=== PATIENT | female | born 1995 | race Two or more races ===

== ENCOUNTER 2019-06-10 05:00 | Inpatient (IN) | payer MEDICAID ==
[~2019-06-10] VITALS: Ht 154.9 cm; Wt 78.2 kg
[~2019-06-10 05:00] MED LIST: PREN1TAB10 PO
[2019-06-10] MEDS: D5%-LACTATED RINGERS 1,000 ML IV SCH ×2 (05:12→13:12)
[2019-06-10] MEDS ORDERED: OXYTOCIN 30U/ 0.9% NaCL 500ML 500 ML IV ONE (05:12)
[2019-06-10] MEDS ORDERED: OXYTOCIN 30U/ 0.9% NaCL 500ML 500 ML IV PRN (05:12)
[2019-06-10] MEDS ORDERED: NEWBORN KIT ONE (05:17)
[2019-06-10] MEDS ORDERED: LIDOCAINE 1%, 20ML ONE (05:18)
[2019-06-10] MEDS ORDERED: MISOPROSTOL 200 MCG TABLET ONE (05:19)
[2019-06-10] MEDS ORDERED: OXYTOCIN 30U/ 0.9% NaCL 500ML 500 ML ONE ×3 (05:19→22:13)
[2019-06-10 05:30] VITALS: BP 112/74
[2019-06-10] MEDS ORDERED: ALUMINUM/MAG/SIMETHICONE 30 ML UDC PO PRN (05:30)
[2019-06-10] MEDS: PENICILLIN GK 2,500,000 UNITS in DEXTROSE 5% 100 ML IVPB SCH ×4 (05:30→17:30)
[2019-06-10] MEDS ORDERED: METOCLOPRAMIDE 5 MG/ML, 2ML IVPush PRN (05:30)
[2019-06-10] MEDS ORDERED: TERBUTALINE 1 MG/ML, 1ML IVPush PRN (05:30)
[2019-06-10] MEDS ORDERED: CALCIUM CARBONATE 500 MG TAB.CHEW PO PRN (05:30)
[2019-06-10] MEDS ORDERED: ONDANSETRON 2MG/ML, 2ML IVPush PRN (05:30)
[2019-06-10] MEDS ORDERED: PENICILLIN GK 5,000,000 UNITS in DEXTROSE 5% 100 ML IVPB ONE (05:30)
[2019-06-10] MEDS ORDERED: TERBUTALINE 1 MG/ML, 1ML SQ PRN (05:30)
[2019-06-10] MEDS ORDERED: FENTANYL PF 100 MCG/2ML IVPush PRN (05:30)
[2019-06-10] MEDS ORDERED: FENTANYL PF 100 MCG/2ML IV PRN (05:30)
[2019-06-10] MEDS ORDERED: SODIUM CITRATE/CITRIC ACID 30 ML UDC PO PRN (05:30)
[2019-06-10 05:46] LABS: BASOPHILS # (AUTO) 0.02 x10^3/uL (0-0.1); BASOPHILS % (AUTO) 0 % (0-1); EOSINOPHILS # (AUTO) 0.07 x10^3/uL (0-0.4); EOSINOPHILS % (AUTO) 1 % (1-7); LYMPHOCYTES # (AUTO) 1.82 x10^3/uL (1-3.4); LYMPHOCYTES % (AUTO) 18 % (22-44); MD NO; MEAN CORPUSCULAR HEMOGLOBIN 28.5 pg (27.0-34.8); MEAN CORPUSCULAR HGB CONC 33.2 g/dL (32.4-35.8); MEAN CORPUSCULAR VOLUME 86.1 fL (80-100); MEAN PLATELET VOLUME 9.1 fL (7.4-10.4); MONOCYTES # (AUTO) 0.81 x10^3/uL (0.2-0.8); MONOCYTES % (AUTO) 8 % (2-9); NEUTROPHILS # (AUTO) 7.27 x10^3/uL (1.8-6.8); NEUTROPHILS % (AUTO) 73 % (42-75); PLATELET COUNT 216 x10^3/uL (130-400); RED BLOOD COUNT 4.22 x10^6/uL (3.82-5.3); RED CELL DISTRIBUTION WIDTH 13.9 % (9.6-15.2)
[2019-06-10] MEDS ORDERED: PLEASE ENTER HEIGHT AND WEIGHT MC SCH (06:30)
[2019-06-10] MEDS: LACTATED RINGERS 1,000 ML IV SCH ×3 (06:48→11:03)
[2019-06-10] MEDS ORDERED: FENTANYL/BUPIV./NS/PF 250 ML EPIDCONT SCH ×2 (07:33→11:20)
[2019-06-10] MEDS ORDERED: LACTATED RINGERS 1,000 ML IV SCH (11:20)
[2019-06-10] MEDS ORDERED: FENTANYL/BUPIV./NS/PF 250 ML EPIDCONT ONE ×2 (11:22→11:25)
[2019-06-10] MEDS ORDERED: BUPIVACAINE 0.25% ONE ×2 (11:23→11:25)
[2019-06-10] MEDS ORDERED: EPHEDRINE 50 MG/ML, 1ML IVPush PRN (11:30)
[2019-06-10] MEDS ORDERED: LACTATED RINGERS 1,000 ML IVBOLUS PRN (11:30)
[2019-06-10] MEDS ORDERED: NALOXONE 0.4 MG/ML, 1ML IVPush PRN (11:30)
[2019-06-10] MEDS ORDERED: ACETAMINOPHEN 325 MG TABLET ONE (16:48)
[2019-06-10] MEDS ORDERED: ACETAMINOPHEN 325 MG TABLET PO PRN (17:00)
[2019-06-10] MEDS ORDERED: GENTAMICIN PER PHARMACY MC SCH (17:00)
[2019-06-10] MEDS ORDERED: GENTAMICIN 300 MG in SODIUM CHLORIDE 0.9% 100 ML IV ONE (17:30)
[2019-06-10] MEDS ORDERED: PHARMACOKINETIC MONITORING MC PRN (17:30)
[2019-06-10] MEDS ORDERED: FENTANYL PF 100 MCG/2ML ONE (21:07)
[2019-06-10] MEDS ORDERED: SIMETHICONE 80 MG CHEW TAB PO PRN (22:00)
[2019-06-10] MEDS ORDERED: CEFAZOLIN 2,000 MG in SODIUM CHLORIDE 0.9% 50 ML IV ONE (22:00)
[2019-06-10] MEDS: OXYTOCIN 30U/ 0.9% NaCL 500ML 500 ML IV SCH (22:26)
[2019-06-10 23:35] VITALS: BP 99/67
[2019-06-11] MEDS: IBUPROFEN 600 MG TABLET PO PRN ×3 (00:58→21:24)
[2019-06-11] MEDS ORDERED: OXYcodone/APAP 5/325MG TABLET PO PRN ×2 (01:00)
[2019-06-11 04:15] VITALS: BP 106/71
[2019-06-11 05:38] LABS: BASOPHILS # (AUTO) 0.01 x10^3/uL (0-0.1); BASOPHILS % (AUTO) 0 % (0-1); EOSINOPHILS # (AUTO) 0.03 x10^3/uL (0-0.4); EOSINOPHILS % (AUTO) 0 % (1-7); LYMPHOCYTES % (AUTO) 8 % (22-44); MD NO; MEAN CORPUSCULAR HEMOGLOBIN 28.2 pg (27.0-34.8); MEAN CORPUSCULAR HGB CONC 32.4 g/dL (32.4-35.8); MEAN CORPUSCULAR VOLUME 86.9 fL (80-100); MONOCYTES # (AUTO) 1.34 x10^3/uL (0.2-0.8); MONOCYTES % (AUTO) 8 % (2-9); NEUTROPHILS # (AUTO) 13.98 x10^3/uL (1.8-6.8); NEUTROPHILS % (AUTO) 84 % (42-75); PLATELET COUNT 183 x10^3/uL (130-400); RED BLOOD COUNT 3.33 x10^6/uL (3.82-5.3); RED CELL DISTRIBUTION WIDTH 14.2 % (9.6-15.2)
[2019-06-11] MEDS: OXYTOCIN 30U/ 0.9% NaCL 500ML 500 ML IV SCH ×2 (07:39→17:39)
[2019-06-11 08:05] VITALS: BP 115/84
[2019-06-11] MEDS: PRENATAL VIT/IRON/FA 1 EACH TABLET PO SCH (08:09)
[2019-06-11 13:30] VITALS: BP 98/61
[2019-06-11 16:00] VITALS: BP 102/69
[2019-06-11 19:50] VITALS: BP 105/71
[2019-06-11] MEDS: DOCUSATE 100 MG CAPSULE PO PRN (21:24)
[2019-06-12] MEDS: OXYTOCIN 30U/ 0.9% NaCL 500ML 500 ML IV SCH (00:56)
[2019-06-12 07:17] VITALS: BP 113/75
[2019-06-12] MEDS: DOCUSATE 100 MG CAPSULE PO PRN (08:06)
[2019-06-12] MEDS: IBUPROFEN 600 MG TABLET PO PRN ×2 (08:06→15:31)
[2019-06-12] MEDS: PRENATAL VIT/IRON/FA 1 EACH TABLET PO SCH (08:06)
[2019-06-12] MEDS ORDERED: IBUP-1222 PO (17:02)
== END 2019-06-12 21:27 | disposition home or self-care (01) | DRG 805 ==
LOC: LDIP 05:00 → 2NW 23:10
PROVIDERS: ADMIT Obstetrics & Gynecology; ATTEND Obstetrics & Gynecology
PROC: 0HQ9XZZ Repair Perineum Skin, External Approach (ICD-10-PCS; principal; 2019-06-10)
PROC: 10E0XZZ Delivery of Products of Conception, External Approach (ICD-10-PCS; 2019-06-10)
PROC: 10D17Z9 Manual Extraction of Products of Conception, Retained, Via Natural or Artificial Opening (ICD-10-PCS; 2019-06-10)
PROC: 3E0R3BZ Introduction of Anesthetic Agent into Spinal Canal, Percutaneous Approach (ICD-10-PCS; 2019-06-10)
PROC: 00HU33Z Insertion of Infusion Device into Spinal Canal, Percutaneous Approach (ICD-10-PCS; 2019-06-10)
PROC: 3E0234Z Introduction of Serum, Toxoid and Vaccine into Muscle, Percutaneous Approach (ICD-10-PCS; 2019-06-11)
DX: O99.824 Streptococcus B carrier state complicating childbirth (principal); O41.1230 Chorioamnionitis, third trimester, not applicable or unspecified; Z37.0 Single live birth; D62 Acute posthemorrhagic anemia; O72.0 Third-stage hemorrhage; O70.0 First degree perineal laceration during delivery; Z3A.39 39 weeks gestation of pregnancy; O77.0 Labor and delivery complicated by meconium in amniotic fluid; O90.81 Anemia of the puerperium; O26.893 Other specified pregnancy related conditions, third trimester; Z67.41 Type O blood, Rh negative
CPT/HCPCS: 36415; 82803; 85025; 85461; 86850; 86900; G0378; J0690; J2540; J2790; J3490; J1580; J2590; J3010; J7120